=== PATIENT | female | born 1960 | race American Indian/Alaskan Native ===

== ENCOUNTER 2021-03-26 09:42 | Outpatient (CLI) | payer OTHER ==
--- NOTE | 2021-03-26 11:13 | Ultrasound Report ---
ULTRASOUND RENAL INDICATION / CLINICAL INFORMATION: UNSPECIFIED ABDOMINAL PAIN. COMPARISON: None available. FINDINGS: RIGHT KIDNEY: Length = 10.9 cm. - Echogenicity: Normal. - Cortical Thickness: Normal. - Hydronephrosis: There is minimal dilation of the collecting system. - Cyst / Mass: None. - Stones: Echogenic 6 mm focus at lower pole. LEFT KIDNEY: Length = 11.5 cm. - Echogenicity: Normal. - Cortical Thickness: Normal. - Hydronephrosis: There is minimal dilation of the collecting system. - Cyst / Mass: 1 cm echogenic focus at the lateral left kidney. - Stones: None seen. URINARY BLADDER: No significant abnormality. FREE FLUID: None. ADDITIONAL FINDINGS: None. IMPRESSION: 1. Bilateral echogenic foci in the kidneys are nonspecific but may represent stones. If clinically in dicated, a CT could be performed for further evaluation. 2. Bilateral minimal dilation of the collecting systems may be physiologic. No definite hydronephrosi s. Signer Name: Solitario Urena MD Signed: 03/26/2021 11:09 AM Workstation Name: [id number]
== END 2021-03-26 09:43 | disposition home or self-care (01) ==
LOC: US 09:42
PROVIDERS: ATTEND Internal Medicine Nephrology
DX: R10.9 Unspecified abdominal pain (principal)
CPT/HCPCS: 76770